=== PATIENT | female | born 1940 | race Caucasian/White ===

== ENCOUNTER → 2017-06-21 | Outpatient (CLI) | payer MEDICARE, BC ==
--- NOTE | 2017-06-22 13:30 | HKNOTE ---
DATE OF SERVICE: 06/21/2017 CHIEF COMPLAINT: Left hip and knee pain. HISTORY OF PRESENT ILLNESS: Tiffanie is a 77-year-old female who is here for left hip and knee pain related to a recent fall. The patient states that she fell on her left side and injured his hip an d knee. She had difficulty walking after that. She has started using a walker after the fall. The pain is constant and increases with weightbearing activities. She is concerned that she may have a fracture. There is no history of tingling or numbness. No other injuries are reported. Patient de nies loss of consciousness. PAST MEDICAL HISTORY: Significant for left hip replacement that was done by Dr. Arellano 20 years a go as well as a right total hip replacement by Dr. Arellano. MEDICATIONS: Include Lotrel, Ambien, Premarin, Imitrex and Crestor. ALLERGIES: NONE. REVIEW OF SYSTEMS: Negative for chest pain, shortness of breath, nausea, vomiting, diarrhea. PHYSICAL EXAMINATION: GENERAL: A pleasant female. She is awake, alert and oriented. She walks with the help of a walker . She is limping on her left side. LEFT HIP AND KNEE: The left hip and knee have ecchymosis. There is a healed incision on the left hi p. There is tenderness over the left greater trochanter and on the lateral aspect of the left knee. The range of motion of the left hip and left knee are terminally restricted. There is no neurovasc ular deficit. There is no instability of the left knee. RIGHT LOWER EXTREMITY: The right lower extremity appears to be slightly shorter than the left. IMAGING: X-rays of the hips are available for review and show no evidence of fracture. Both total hip replacements are well fixed. There is evidence of wear and osteolysis right worse than left. X -rays of the left knee show advanced osteoarthritis of the lateral compartment of the left knee. Th ere is no evidence of fracture. ASSESSMENT AND PLAN: A 77-year-old female with left hip and knee contusion. 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 At this time the patient is advised to use ice and anti-inflam matory medications. In the next 3 to 4 weeks once her pain has decreased she will come in for [facility] and would like to have a left knee injection. A cortisone injection can be done for her osteoar thritis. She understands that she needs a head and liner exchange on her hips to prevent further os teolysis. This will also be discussed in more detail at her future visits. Follow up in 3 to 4 week s. Dictated By: NICOLAS LE/QAMAR Conf#: [id number] DID#: [id number]
== END | disposition home or self-care (01) ==
LOC: HKI 14:47
PROVIDERS: ATTEND Orthopaedic Surgery
DX: S80.02XD Contusion of left knee, subsequent encounter (principal); S70.02XD Contusion of left hip, subsequent encounter; W19.XXXD Unspecified fall, subsequent encounter
CPT/HCPCS: 73502

== ENCOUNTER → 2017-07-12 | Outpatient (CLI) | payer MEDICARE, BC ==
--- NOTE | 2017-07-12 15:28 | PN ---
Date/Time of Note Date/Time of Note DATE: 07/12/17 TIME: 15:18 Outpatient Progress Note Chief Complaint Left knee cortisone injection HPI 77-year-old female presents today for left knee cortisone injection. She continues with ongoing aches to the left knee. Patient has ttyl-go-dhik deformity to the lateral compartment of the knee. Patient did experience a fall creating increased pain to the hips. Was seen about 3-[address] Montaño and discussion regarding revision surgery with head and liner exchange was discussed with patient. Today, patient states that her hips continue to bother her with the left being worse than the right. Denies any falls or injury since she was last seen. Review of Systems Const: No Fever, no chills, no Fatigue, normal appetite, no diaphoresis. Resp: No SOB, no wheezing, no chest pain. CV: No chest pain, no palpitaions, no PATHAK. Physical Exam General Appearance: well-developed, well-nourished, in no acute distress. Left knee: Tenderness to palpation primarily to the lateral compartment of the left knee. Noted crepitus to the lateral compartment of the left knee. Patient is able to flex up to 125 today with full extension. Assisted ambulation using single-point cane secondary to bilateral hip pain. Negative Homans sign on exam today. Assessment/Plan Problems: (1) Osteoarthritis of left knee * Cortisone injection to the left knee performed today. Area was cleaned with Betadine swabs and alcohol swabs. 1 cc of 40 mg per male Kenalog along with 2 cc of 1% lidocaine injected into the medial compartment of the knee using a 25- gauge needle. Patient tolerated procedure well. Observe for 5-10 minutes prior to discharge. * Patient discussed possible injection to the hip joint Directly with Dr. Montaño , who recommends head and liner exchange as cortisone injection to the hip is not indicated status post total hip arthroplasty. Given the patient's primary hip complaint is on the left side although it was explained that there is more ostial lysis on the right side, patient will proceed with head and liner exchange of the left hip and when she has recovered, pursued of right hip head and liner exchange will be performed. * Follow-up for preoperative testing and exam. JULIA MALIK PA-C Jul 12, 2017 15:28
== END | disposition home or self-care (01) ==
LOC: HKI 13:18
PROVIDERS: ATTEND Orthopaedic Surgery
DX: M17.12 Unilateral primary osteoarthritis, left knee (principal)
CPT/HCPCS: 20610